=== PATIENT | female | born 1970 | race Caucasian/White ===

== ENCOUNTER 2020-08-27 16:20 | Emergency (ER) | payer OTHER ==
[2020-08-27] MEDS ORDERED: NORFLEX 100 MG100 MG PO (18:30)
[2020-08-27] MEDS ORDERED: NAPROXEN500 MG PO (18:30)
[2020-08-27] MEDS ORDERED: MEDROL DOSEPAK 24 MG PO (18:30)
== END 2020-08-27 18:45 | disposition home or self-care (01) ==
LOC: ER1 16:20
DX: M54.5 Low back pain (principal); G89.29 Other chronic pain; E11.9 Type 2 diabetes mellitus without complications; I10 Essential (primary) hypertension; G40.909 Epilepsy, unspecified, not intractable, without status epilepticus; Z90.710 Acquired absence of both cervix and uterus; Z95.0 Presence of cardiac pacemaker
CPT/HCPCS: 72131; 96372; 99283; J2930